=== PATIENT | female | born 1975 | race American Indian/Alaskan Native ===

== ENCOUNTER 2017-05-02 23:37 | Emergency (ER) | payer MEDICAID, OTHER ==
--- NOTE | 2017-05-03 01:07 | EDM.PDOC ---
ED HPI GENERAL MEDICAL PROBLEM - General Chief Complaint: General Stated Complaint: RIGHT SIDE INJURY Time Seen by Provider: 05/03/17 00:16 - History of Present Illness INITIAL COMMENTS - FREE TEXT/NARRATIVE: HISTORY AND PHYSICAL: History of present illness: Patient is a 41-year-old female presents 1 month status post fall off a horse with right rib injury and comes back with the recurrent discomfort she states is been relatively persistent that she did cough or move it seems to have aggravated that she was seen at another institution and was told x-rays were negative at that time. She has no shortness of breath nausea vomiting or other complaints Review of systems: As per history of present illness and below otherwise all systems reviewed and negative. Past medical history: As per history of present illness and as reviewed below otherwise noncontributory. Surgical history: As per history of present illness and as reviewed below otherwise noncontributory. Social history: No reported history of drug or alcohol abuse. Family history: As per history of present illness and as reviewed below otherwise noncontributory. Physical exam: HEENT: Atraumatic, normocephalic, pupils reactive, negative for conjunctival pallor or scleral icterus, mucous membranes moist, throat clear, neck supple, nontender, trachea midline. Lungs: Clear to auscultation, breath sounds equal bilaterally, chest tenderness in the region of 4 through 8 ribs in the franc-axillary region Heart: S1S2, regular, negative for clicks, rubs, or JVD. Abdomen: Soft, nondistended, nontender. Negative for masses or hepatosplenomegaly. Negative for costovertebral tenderness. Pelvis: Stable nontender. Genitourinary: Deferred. Rectal: Deferred. Extremities: Atraumatic, negative for cords or calf pain. Neurovascular unremarkable. Neuro: Awake, alert, oriented. Cranial nerves II through XII unremarkable. Cerebellum unremarkable. Motor and sensory unremarkable throughout. Exam nonfocal. Diagnostics: Chest X-ray with right ribs Therapeutics: Hydrocodone 10 mg by mouth Impression: #1 observation 1 month status post fall #2 right rib fractures Definitive disposition and diagnosis as appropriate pending reevaluation and review of above. right rib Pain Score (Numeric/FACES): 10 - Related Data Allergies Allergy/AdvReac Type Severity Reaction Status Date / Time No Known Allergies Allergy Verified 05/02/17 23:41 Home Meds: Home Meds . [No Known Home Meds] 05/02/17 [History] Past Medical History HEENT History: Reports: None Cardiovascular History: Reports: None Respiratory History: Reports: None Gastrointestinal History: Reports: None Genitourinary History: Reports: Renal Calculus [employer] History: Reports: Musculoskeletal History: Reports: None Neurological History: Reports: None Psychiatric History: Reports: None Endocrine/Metabolic History: Reports: None Hematologic History: Reports: None Dermatologic History: Reports: None - Infectious Disease History Infectious Disease History: Reports: Chicken Pox Social & Family History - Family History Family Medical History: Noncontributory - Tobacco Use Smoking Status *Q: Never Smoker - Recreational Drug Use Recreational Drug Use: No ED ROS GENERAL - Review of Systems Review Of Systems: ROS reveals no pertinent complaints other than HPI. ED EXAM, GENERAL - Physical Exam Exam: See Below (See dictation) Course - Vital Signs Last Recorded V/S: Last Vital Signs Temp 36.5 C 05/02/17 23:41 Pulse 89 05/02/17 23:41 Resp 18 05/02/17 23:41 BP 122/70 05/02/17 23:41 Pulse Ox 100 05/02/17 23:41 - Orders/Labs/Meds Orders: Active Orders 24 hr Category Date Time Status Ribs 2V w Chest Rt [CR] Stat Exams 05/02/17 23:47 Taken Labs: Laboratory Tests 05/02/17 05/02/17 Range/Units 23:50 23:50 Urine Color YELLOW Urine Appearance CLEAR Urine pH 7.5 (5.0-8.0) Ur Specific [place] 1.010 (1.001-1.035) Urine Protein NEGATIVE (NEGATIVE) mg/dL Urine Glucose (UA) NEGATIVE (NEGATIVE) mg/dL Urine Ketones NEGATIVE (NEGATIVE) mg/dL Urine Occult Blood NEGATIVE (NEGATIVE) Urine Nitrite NEGATIVE (NEGATIVE) Urine Bilirubin NEGATIVE (NEGATIVE) Urine Urobilinogen 1.0 (<2.0) EU/dL Ur Leukocyte Esterase SMALL (NEGATIVE) Urine RBC 0-2 (0-2/HPF) Urine WBC 0-4 (0-5/HPF) Ur Epithelial Cells FEW (NONE-FEW) Urine Bacteria FEW (NEGATIVE) Urine HCG, Qual NEGATIVE (NEGATIVE) Departure - Departure Time of Disposition: 01:07 Disposition: Home, Self-Care 01 Condition: Good Clinical Impression: Rib fractures - Discharge Information Referrals: PCP,None [Primary Care Provider] - Additional Instructions: The following information is given to patients seen in the emergency department who are being discharged to home. This information is to outline your options for follow-up care. We provide all patients seen in our emergency department with a follow-up referral. The need for follow-up, as well as the timing and circumstances, are variable depending upon the specifics of your emergency department visit. If you don't have a primary care physician on staff, we will provide you with a referral. We always advise you to contact your personal physician following an emergency department visit to inform them of the circumstance of the visit and for follow-up with them and/or the need for any referrals to a consulting specialist. The emergency department will also refer you to a specialist when appropriate. This referral assures that you have the opportunity for followup care with a specialist. All of these measure are taken in an effort to provide you with optimal care, which includes your followup. Under all circumstances we always encourage you to contact your private physician who remains a resource for coordinating your care. When calling for followup care, please make the office aware that this follow-up is from your recent emergency room visit. If for any reason you are refused follow-up, please contact the [facility] emergency department at and asked to speak to the emergency department charge nurse. Hydrocodone as prescribed follow-up primary medical doctor 1-2 days return as needed as discussed] - My Orders Last 24 Hours: My Active Orders 05/02/17 23:47 Ribs 2V w Chest Rt [CR] Stat - Assessment/Plan Last 24 Hours: My Active Orders 05/02/17 23:47 Ribs 2V w Chest Rt [CR] Stat
[2017-05-03] MEDS ORDERED: Acetaminophen/HYDROcodone 325-10 MG Tab PO ONE (01:08)
[2017-05-03 02:01] VITALS: BP 113/60
--- NOTE | 2017-05-05 12:08 | CR ---
EXAM DATE: 05/02/17 PATIENT'S AGE: 41 Patient: CANDY OLIVERA Facility: [place], [place] Site . Site : [id number] Study: XRay Chest Right ribs [id number]/9/2017 12:15:21 AM Ordering Physician: Doctor Pride Final Report: INDICATION: pt states horse kicked her in right ribs 1 month ago, continuing pain TECHNIQUE: Chest 1 view and right-sided rib series COMPARISON: None FINDINGS: Cardiovascular and mediastinum: Heart size and vasculature are normal in caliber and appearance. Mediastinum is within normal limits. Lungs and pleural space: Lungs are clear. No sign of infiltrate or mass. No sign of pleural effusion. No pneumothorax. Bones: Acute/subacute 5th through 7th right lateral rib fractures. Remote healed lateral left 5th and 6th rib fractures. Other: Surgical clips in the right quadrant IMPRESSION: Acute/subacute 5th through 7th right lateral rib fractures. No evidence for pneumothorax. Dictated by Alpesh Marsh MD @ 05/03/2017 12:19:37 AM Dictated by: Alpesh Marsh MD @ 05/03/2017 00:19:54 (Electronic Signature) Report Signed by Proxy. KAREN
== END 2017-05-03 01:35 | disposition home or self-care (01) ==
LOC: MW.ED 23:37
DX: S22.41XA Multiple fractures of ribs, right side, initial encounter for closed fracture (principal); Z87.442 Personal history of urinary calculi; V80.010A Animal-rider injured by fall from or being thrown from horse in noncollision accident, initial encounter
CPT/HCPCS: 71101; 81001; 81025; 99283; A9270